=== PATIENT | male | born 1950 | race Caucasian/White ===

== ENCOUNTER → 2021-02-16 | Day surgery (SDC) | payer OTHER ==
[~2021-02-16] VITALS: Ht 175.3 cm; Wt 77.1 kg
[~2021-02-16] MED LIST: ASPI-1406 PO; BALANCED SALT IRRIG SOLN 15ML ONE; BALANCED SALT IRRIG SOLN COMB1 500ML OP ONE; CIPROFLOXACIN 0.3% OPHTH SOLN 2.5ML ONE; CYCLOPENTOLATE HCL 1% OPHTH DROPS 2ML LEFTEYE ONE; CYCLOPENTOLATE HCL 1% OPHTH DROPS 2ML ONE; FENTANYL CITRATE/PF 50MCG/ML 2ML VIAL ONE; GLIP10TA10 PO; HYALURONATE SODIUM 10 MG/ML 0.55ML SYRINGE IO ONE; LIDOCAINE HCL/PF 2% 20 MG/ML 10ML VIAL ONE; LISI20TA31 PO; METF-874 PO; MIDAZOLAM HCL 2 MG/2 ML VIAL ONE; NEO/POLYMYX B SULF/DEXAMETH OPHTH OINT 3.5GM ONE; PHENYLEPHRINE HCL 10% OPHTH DROPS 5ML LEFTEYE ONE; PHENYLEPHRINE HCL 10% OPHTH DROPS 5ML ONE; PREDNISOLONE ACETATE 1% OPHTH DROPS 5ML ONE; SIMV-43 PO; SODIUM CHLORIDE 0.9% 1,000 ML IV SCH; TROPICAMIDE 1% OPHTH DROPS 15ML LEFTEYE ONE; TROPICAMIDE 1% OPHTH DROPS 15ML ONE
[2021-02-16 06:36] LABS: BASOPHILS % 0.7 % (0.0-2.0); EOSINOPHILS % 5.3 % (0.0-5.0); HEMATOCRIT. 42.9 % (42.0-52.0); HEMOGLOBIN. 14.6 g/dL (14.0-18.0); LYMPHOCYTES % 25.3 % (20.0-50.0); MEAN CORPUSCULAR HEMOGLOBIN 30.1 pg (28.0-32.0); MEAN CORPUSCULAR VOLUME 88.4 fL (80.0-94.0); MEAN PLATELET VOLUME 8.1 fl (7.4-10.4); MONOCYTES % 7.8 % (2.0-8.0); NEUTROPHILS % 60.9 % (40.0-76.0); PLATELET 211 x1000/uL (130-400); RED BLOOD CELL COUNT 4.86 mill/uL (4.7-6.1); RED CELL DISTRIBUTION WIDTH 13.9 % (11.6-14.6)
[2021-02-16 06:46] LABS: CHLORIDE 108 mEq/L (98-107)
== END | disposition home or self-care (01) ==
LOC: OR 05:53
PROVIDERS: ATTEND Ophthalmology
DX: E11.36 Type 2 diabetes mellitus with diabetic cataract (principal); H25.89 Other age-related cataract; I10 Essential (primary) hypertension; E78.00 Pure hypercholesterolemia, unspecified; Z79.82 Long term (current) use of aspirin; Z79.84 Long term (current) use of oral hypoglycemic drugs; Z79.899 Other long term (current) drug therapy; Z98.890 Other specified postprocedural states; Z20.822 Contact with and (suspected) exposure to COVID-19; Z88.8 Allergy status to other drugs, medicaments and biological substances
CPT/HCPCS: 36415; 66984; 80048; 85025; 87426; J2250; J3010; J3490; V2632